=== PATIENT | female | born 1975 | race Caucasian/White ===

== ENCOUNTER 2025-01-18 00:05 | Emergency (ER) | payer BC ==
[2025-01-18 00:29] LABS: APPEARANCE,URINE CLEAR (CLEAR); GLUCOSE,URINE NEGATIVE (NEGATIVE); OCCULT BLOOD,URINE TRACE-INTACT (NEGATIVE)
[2025-01-18 00:52] LABS: BASOPHILS ABSOLUTE AUTO 0.05 K/uL (0.00-0.10); BASOPHILS PERCENT AUTO 0.6 % (0.1-1.3); EOSINOPHILS ABSOLUTE AUTO 0.06 K/uL (0.00-0.40); EOSINOPHILS PERCENT AUTO 0.7 % (0.0-5.4); IMMATURE GRAN PERCENT AUTO 0.2 % (0.0-0.7); LYMPHOCYTES ABSOLUTE AUTO 1.50 K/uL (0.8-3.3); LYMPHOCYTES PERCENT AUTO 18.4 % (11.4-47.7); MONOCYTES ABSOLUTE AUTO 0.76 K/uL (0.20-0.90); MONOCYTES PERCENT AUTO 9.3 % (3.3-12.6); NEUTROPHILS ABSOLUTE AUTO 5.78 K/uL (1.0-7.6); NEUTROPHILS PERCENT AUTO 70.8 % (40.0-78.1); PLATELET COUNT,PLT 262 K/uL (130-375); RED BLOOD CELL COUNT 4.56 M/uL (3.77-5.24); WHITE BLOOD CELL COUNT,WBC 8.2 K/uL (3.2-11.0)
[2025-01-18 00:54] LABS: SQUAMOUS EPITHELIAL CELLS,UR RARE /HPF; UROTHELIAL CELLS,URINE NOT SEEN /HPF
[2025-01-18 00:55] LABS: IMMATURE GRAN ABSOLUTE AUTO 0.02 K/uL (0.00-0.23)
== END 2025-01-18 01:33 | disposition home or self-care (01) ==
LOC: JP.ED 00:05
DX: N39.0 Urinary tract infection, site not specified (principal); Z90.49 Acquired absence of other specified parts of digestive tract
CPT/HCPCS: 36415; 81001; 85025; 99283